=== PATIENT | male | born 1955 | race Caucasian/White ===

== ENCOUNTER 2020-10-25 05:39 | Observation (INO) | payer MEDICARE ==
[2020-10-25] VITALS (10 sets, daily range): BP systolic 105–159; BP diastolic 46–86; PULSE 49–66; TEMP 97.1–97.9
[~2020-10-25] VITALS: Ht 188 cm; Wt 135.7 kg
[2020-10-25] MEDS ORDERED: COZAAR100 MG PO (06:05)
[2020-10-25] MEDS ORDERED: HYGROTON 2525 MG/TAB PO (06:06)
[2020-10-25] MEDS ORDERED: NORVASC 10MG10 MG PO (06:06)
--- NOTE | 2020-10-25 08:17 | NUR ---
0710: PATIENT WENT BACK TO OR WITH THIRD OFFICER, CHART SENT WITH PATIENT, PATIENT BELONGINGS BROUGHT TO PACU. SENT TO WAITING ROOM.
--- NOTE | 2020-10-25 11:00 | NUR ---
PATIENT ADMITTED INTO ROOM 349 POST OP LTK. A&O. VSS. PACU DID REPORT PATIENT GOT ROBINOL IN OR FOR BRADYCARDIA. HR IS CURRENTLY IN THE 50'S. LTK DRESSING IS CD&I WITH ACEWRAP AND ICE PACK INPLACE. TEDS TO RLE. SCD'S TO BLE. POSITIVE PEDAL PULSES TO BLE. NO C/O PAIN IN LLE. PATIENT IS UNABLE TO MOVE BLE POST OP. IV FLUIDS INFUSING INTO RIGHT HAND IV. NO C/O N/V. LIQUIDS AT BEDSIDE. HEAD TO TOE ASSESSMENT COMPLETE. AT BEDSIDE. CALL LIGHT IN REACH.
--- NOTE | 2020-10-25 13:30 | NUR ---
PATIENT REPORTS HIS SPINAL IS STARTING TO WEAR OFF AND REQUESTED PAIN MEDS BEFORE THE PAIN SETS IN. RATES PAIN AT 3/10 IN LLE. GAVE PRN ROXICODONE, ONE TAB PER PAIN PROTOCOL. WILL MONITOR
--- NOTE | 2020-10-25 15:30 | NUR ---
PATIENT REPORTS INCREASING PAIN IN LLE RATED AT 8/10 EVEN AFTER 5MG ROXICODONE & SCHEDULED TYLENOL. GAVE ANOTHER DOSE OF PRN ROXICODONE, 5MG AND 2MG OF IV MORPHINE. NOTIFIED. SEE MEDICATION CHANGES. PATIENT PLACED IN A THE "TIME OUT" POSITIONED AND ICE TO LEFT KNEE. WILL MONITOR.
--- NOTE | 2020-10-25 16:30 | NUR ---
PATIENT IS NOW RESTING COMFORTABLY IN BED WITH LLE ELEVATED. LIGHTS TURNED DOWN. CALL LIGHT IN REACH.
--- NOTE | 2020-10-25 17:33 | NUR ---
PATIENT HAS NOT VOIDED POST OP YET. PATIENT DENIES URGE TO VOID. URINE AT BEDSIDE. PATIENT UNABLE TO URINATE WHEN ASKED TO TRY. BLADDER SCAN ONLY SHOWED 322CC. WILL GIVE PATIENT MORE TIME.
--- NOTE | 2020-10-25 19:30 | NUR ---
PATIENT IS ALERT AND ORIENTED X4. PATIENT HAS DRESSING AND JESSIE WRAP TO LEFT KNEE THAT IS CLEAN DRY AND INTACT. PATIENT HAS SCDS AND RONALDO HOSE ON BILATERAL LOWER EXTREMITIES. PATIENT HAS YET TO VOID AND WAS BLADDER SCANNED CLOSE TO SHIFT CHANGE WITH 300ML. PATIENT HAS IV INT TO RIGHT HAND. PATIENT IS SET TO WALK THIS PM. PATIENT DENIES FURTHER NEEDS AT THIS TIME. CALL LIGHT WITHIN REACH. HEAD TO TOE ASSESSMENT COMPLETE.
[2020-10-26 03:48] VITALS: BP 163/70; PULSE 64; TEMP 98
[2020-10-26 06:52] LABS: HEMATOCRIT 41.3 % (42.0-52.0); HEMOGLOBIN 14.4 g/dl (13.5-18.0)
[2020-10-26 07:45] VITALS: BP 144/64; PULSE 61; TEMP 97.6
--- NOTE | 2020-10-26 08:15 | NUR ---
Patient in bed resting. Alert and oriented x 3. Assessment complete. Patient states pain 5/10 to left knee, medications given per orders. Left knee with acewrap is CDI. Pedal pulses intact. Tedhose and SCDs to RLE. Patient additional needs at this time.
--- NOTE | 2020-10-26 09:00 | NUR ---
Contacted Quinton Rascon, patient states that he has been unable to void since last night, bladder scanned for 867 ml of urine. Straight cathed per TORB. Removed 1200 ml of urine. No further needs at this time.
--- NOTE | 2020-10-26 10:10 | NUR ---
Patient states increased pain to knee, medications given per orders.
[2020-10-26 12:00] VITALS: BP 154/62; PULSE 64; TEMP 98.7
--- NOTE | 2020-10-26 12:29 | NUR ---
First visit from the mail technician. No needs right now.
[2020-10-26 15:31] VITALS: BP 151/53; PULSE 62; TEMP 98.3
--- NOTE | 2020-10-26 15:34 | NUR ---
political worker met with patient to discuss discharge plan. Patient lives at home with Nica ([phone]) in [place]. Patient reports he is independent on all activities of daily living and uses no medical equipment to assist with mobility. Patient's PCP is at [facility] and states he doesn't see a particular doctor. Patient uses [facility] in [place] and has no trouble affording his medications. Patient reports he has a trust established and thinks the DP- is included in that. Worker educated patient that since he is legally his agent would be his . Patient plans on returning home with . *Discharge plan: Home with spouse*
--- NOTE | 2020-10-26 18:27 | NUR ---
Patient has done well throughout the day, main medications given throughout the day for knee pain. Dressing changed to aquacell this AM, leah hose to BLE. Educated patient on increasing activity. Has been up to recliner throughout the day and for meals then back to bed. Ice maintained to knee. Denies needs at this time. Will report off to metal door assembler.
--- NOTE | 2020-10-26 19:24 | NUR ---
Bladder scanned patient at this time, is still unable to void. Scanned for 675 ml of urine. Straight cathed per orders, removed 750 ml of urine.
[2020-10-26 19:30] VITALS: BP 153/51; PULSE 67; TEMP 97.8
--- NOTE | 2020-10-26 20:00 | NUR ---
PATIENT ALERT AND ORIENTED X4. PATIENT UP SITTING IN BED. STRAIGHT CATH DONE BEFORE SHIFT CHANGE WITH OUTPUT OF 750ML. PATIENT DENIES FEELING LIKE HE NEEDS TO URINATE NOW. PATIENT HAS AQUACELL TO LEFT KNEE. CLEAN DRY AND INTACT. PATIENT HAS SCD'S ON BILATERAL LOWER EXTREMITIES. PATIENT DENIES PAIN OR OTHER NEEDS AT THIS TIME. HEAD TO TOE ASSESSMENT COMPLETE. CALL LIGHT WITHIN REACH.
[2020-10-26 23:36] VITALS: BP 149/58; PULSE 71; TEMP 98.1
[2020-10-27 03:27] VITALS: BP 135/60; PULSE 62; TEMP 98.5
--- NOTE | 2020-10-27 06:34 | NUR ---
PATIENT DID WELL THROUGHOUT NIGHT. PATIENT WAS ABLE TO URINATE TWICE IN URINAL THROUGHOUT NIGHT. RECIEVED PAIN MEDS PER ORDERS REQUESTED. TO REPORT TO DAY SHIFT.
[2020-10-27 07:27] VITALS: BP 156/55; PULSE 67; TEMP 98
--- NOTE | 2020-10-27 08:30 | NUR ---
PATIENT IS A&O AND SITTING UP IN BEDSIDE CHAIR WITH BREAKFAST TRAY. VSS. C/O PAIN IN LLE RATED AT 4-5 ON PAIN SCALE AND IS REQUESTING PAIN MEDS BEFORE AM THERAPY. GAVE PRN ROXICODONE, TWO TABS BEFORE AM THERAPY. LTK DRESSING IS CD&I WITH AQUACEL. TEDS TO BLE. SCD'S CURRENTLY OFF. POSITIVE PEDAL PULSES TO BLE. PATIENT EAT/DRINK AND NOW VOIDING SUFFIENT AMOUNTS. PATIENT WAS ABLE TO VOID X3 SINCE BEING STRAIGHT CATHED LAST NIGHT. URINAL AT BEDSIDE. RIGHT HAND IV TO INT. NO C/O N/V. AM MEDS GIVEN. HEAD TO TOE ASSESSMENT COMPLETE. NO OTHER NEEDS AT THIS TIME. CALL LIGHT IN REACH.
--- NOTE | 2020-10-27 09:30 | NUR ---
PHYSICAL THERAPY WORKING WITH PATIENT WHO WAS ONLY ABLE TO AMBULATE TO THE ROOM DOOR. PATIENT AND HIS ARE HESITENT TO DISCHAGE HOME TODAY AND HAVE EXPRESSED THE NEED TO STAY ANOTHER NIGHT TO STAFF. WILL MONITOR THERAPY PROGRESSION TODAY
[2020-10-27 12:00] VITALS: BP 134/52; PULSE 72; TEMP 98.3
[2020-10-27 15:23] VITALS: BP 151/52; PULSE 83; TEMP 97.7
[2020-10-27 19:44] VITALS: BP 159/63; PULSE 70; TEMP 98.5
--- NOTE | 2020-10-27 20:00 | NUR ---
PATIENT IS ALERT AND ORIENTED X4. PATIENT WENT ON WALK AROUND FLOOR. ORDER FOR TYLENOL CALLED BECAUSE PATIENT COMPLAINS OF FEELING LIGHT HEADED EARLIER TODAY WHICH HE THINKS COULD BE FROM THE NARCOTICS. PATIENT HAS INT IV TO RIGHT HAND. PATIENT TO BE DISCHARGED TOMORROW. PATIENT DENIES FURTHER NEEDS AT THIS TIME. CALL LIGHT WITHIN REACH. HEAD TO TOE ASSESSMENT COMPLETE.
[2020-10-27 23:45] VITALS: BP 145/60; PULSE 77; TEMP 98.4
[2020-10-28 03:33] VITALS: BP 135/60; PULSE 64; TEMP 98.4
--- NOTE | 2020-10-28 05:59 | NUR ---
PATIENT DID WELL THROUGHOUT NIGHT. TYLENOL FOR PAIN PER ORDERS. PATIENT TO DISCHARGE TODAY. PATIENT DENIES PAIN OR FURTHER NEEDS AT THIS TIME. WILL REPORT TO DAYSHIFT.
[2020-10-28 08:00] VITALS: BP 152/51; PULSE 74; TEMP 97.9
[2020-10-28] MEDS ORDERED: FLOMAX 0.40.4 MG/CAP PO (09:20)
[2020-10-28] MEDS ORDERED: ASPI325T6 PO (09:20)
[2020-10-28] MEDS ORDERED: NORCO 325 MG-7.1 TAB PO (09:21)
[2020-10-28] MEDS ORDERED: ROXICODONE 55 MG/TAB PO (09:23)
[2020-10-28] MEDS ORDERED: SENOKOT S 50 MG1 TAB PO (09:24)
[2020-10-28 12:00] VITALS: BP 129/52; PULSE 72; TEMP 98.6
--- NOTE | 2020-10-28 15:00 | NUR ---
PATIENT DISCHARGING HOME VIA WC TO PERSONAL VEHICLE WITH . GAVE DISCHARGE INSTRUCTIONS, E-SCRIPTS SENT & DISCUSSED F/U APT. ANSWERED QUESTIONS/CONCERNS. RN DC'D RIGHT HAND IV, COVERED SITE WITH GAUZE & COBAN. PATIENT IS DRESSED, PACKED & ESCORTED OUT.
== END 2020-10-28 15:00 | disposition home or self-care (01) ==
LOC: INPTSU 05:39 → SDCO 05:39 → SURG 05:39 → EDSTATUS 07:30 → SURG 07:30 → INPTSU 11:00 → SDCO 13:06 → SURG 10-26 15:46
PROVIDERS: ADMIT Orthopaedic Surgery
DX: M17.0 Bilateral primary osteoarthritis of knee (principal); I10 Essential (primary) hypertension; G47.33 Obstructive sleep apnea (adult) (pediatric); Z79.1 Long term (current) use of non-steroidal anti-inflammatories (NSAID); Z79.899 Other long term (current) drug therapy
CPT/HCPCS: OP; A9284; C1713; C1776; G0378; J0690; J2250; J2270; J2704; J3010; J7030; J7120

== ENCOUNTER 2021-10-24 05:38 | Inpatient (IN) | payer MEDICARE ==
[~2021-10-24] VITALS: Ht 188 cm; Wt 131.0 kg
[2021-10-24] VITALS (11 sets, daily range): BP systolic 97–168; BP diastolic 40–76; PULSE 44–63; TEMP 94–98.3
[~2021-10-24 05:38] MED LIST: ASPI325T6 PO; COZAAR100 MG PO; FLOMAX 0.40.4 MG/CAP PO; HYGROTON 2525 MG/TAB PO; NORCO 325 MG-7.1 TAB PO; NORVASC 10MG10 MG PO; ROXICODONE 55 MG/TAB PO; SENOKOT S 50 MG1 TAB PO
[2021-10-24] MEDS ORDERED: FOLIC ACID 40400 MCG PO (06:22)
[2021-10-24] MEDS ORDERED: NATURAL IRON65 MG (06:22)
[2021-10-24] MEDS ORDERED: VITAMIN C500 MG PO (06:23)
[2021-10-24] MEDS ORDERED: MULTI VITAMINS1 TAB PO (06:26)
[2021-10-24] MEDS ORDERED: VIT D3 (06:29)
--- NOTE | 2021-10-24 07:13 | NUR ---
5453 CHLORHEXADINE SCRUB DONE RIGHT KNEE
--- NOTE | 2021-10-24 10:15 | NUR ---
Pt. arrived to the floor via bed. Pt. is a&OX3, assessment complete. IV to lt. hand patent. Dressing to rt. knee CDI with salty wrap. Pt. denies pain at this time. Vitals stable.
--- NOTE | 2021-10-24 15:00 | NUR ---
Pt. reports pain continues after receiving an oxycodone. Gave Morphine.
--- NOTE | 2021-10-24 20:23 | NUR ---
PT REPORTS PAIN TO RT KNEE 10/18. MEDICATED WITH OXYCODONE 10MG PO AT THIS TIME. HS MEDS GIVEN WELL. PT HAS BEEN UNABLE TO VOID ON HIS OWN. HAS INT TO LEFT HAND, FLUSHES EASILY. IS ALERT AND ORIENTED X4.
--- NOTE | 2021-10-24 21:27 | NUR ---
PT WAS ABLE TO STAND AT BEDSIDE, POOR WALKING ATTEMPT. MEDICATED WITH NORCO 7.5MG 1 PO AT THIS TIME FOR RT KNEE PAIN. BULKY DRSG INTACT TO RT KNEE. ICE PACK IN PLACE.
--- NOTE | 2021-10-25 00:58 | NUR ---
PT AWAKE, MEDICATED WITH OXYCODONE 10MG PO WITH SCHEDULED TYLENOL. PT ATTEMPTING TO USE URINAL, NO SUCCESS.
--- NOTE | 2021-10-25 01:22 | NUR ---
PT BLADDER SCANNED FOR 405 AT 2300, PT STILL UNABLE TO VOID. STRAIGHT CATHED FOR 550CC YELLOW URINE RETURN. PT TOLERATED PROCEDURE WELL.
[2021-10-25 03:28] VITALS: BP 160/58; PULSE 53; TEMP 97.9
[2021-10-25 06:06] LABS: HEMATOCRIT 40.5 % (42.0-52.0); HEMOGLOBIN 14.7 g/dl (13.5-18.0)
[2021-10-25 07:48] VITALS: BP 143/55; PULSE 51; TEMP 97.9
--- NOTE | 2021-10-25 09:12 | NUR ---
Pt. sitting up in the chair at this time. Pt. is a&OX3, assessment complete. INT to lt. hand patent. Pt. reports that he hasn't urinated yet. Will bladder scan after PT works with the pt. Pt. reports pain to rt. knee at a 6 on pain scale, gave pain meds per orders. Pt. denies further needs, call light within reach.
--- NOTE | 2021-10-25 09:18 | NUR ---
Trust And Estates Attorney met with patient to discuss discharge planning. Patient advised he is in pain right now but is agreeable to answer intake questions. Patient lives in [place] with his , Nica (ph#[phone]) and sees Dr. Lopez in [facility] for primary care. Patient uses [facility] in [place] for medications and does not normally use DME, however has a front wheeled walker that he has borrowed for recovery. Patient is normally independent with ADLS and plans to return home at time of discharge. Patient believes he has Advance Directives as a part of his trust, but patient is not entirely sure. Discharge Plan: Home
--- NOTE | 2021-10-25 10:11 | NUR ---
Initial visit; Patient drowsy and in pain but kindly thanked Principal Cyber Engineer for looking in on him, offering encouragement and keeping him in her prayers.
[2021-10-25 12:25] VITALS: BP 158/49; PULSE 52; TEMP 97.8
--- NOTE | 2021-10-25 15:34 | NUR ---
Notified KAILEY Alcantara about pt.'s urine retention. New order received for rincon catheter. Placed 16 fr. coude. Pt. tolerated well.
[2021-10-25 16:32] VITALS: BP 180/48; PULSE 60; TEMP 98
[2021-10-25 19:12] VITALS: BP 156/47; PULSE 58; TEMP 97.4
[2021-10-25 23:42] VITALS: BP 132/43; PULSE 61; TEMP 97.7
[2021-10-26 03:28] VITALS: BP 140/52; PULSE 55; TEMP 97.8
--- NOTE | 2021-10-26 06:04 | NUR ---
END OF SHIFT NOTE: PATIENT RESTED QUIETLY THIS SHIFT. PATIENT AMBULATED SHORT DISTANCE IN HALLWAYS WITH WALKER. PATIENT GIVEN PRN OXYCODONE AT HS AND SCHEDULED TYLENOL THE REST OF SHIFT. PATIENT PAYAN CATHETER DRAINING AND PATIENT VOICES CURIOSITY WHEN CATHETER IS GOING TO COME OUT IN THE AM.
[2021-10-26 07:13] VITALS: BP 139/72; PULSE 56; TEMP 98.6
--- NOTE | 2021-10-26 09:04 | NUR ---
PT ALERT AND ORIENTED, WITH DRESSING CDI, PAYAN REMOVED AT 0750, ABLE TO VOID AT 0900, DENIES SOA, LUNGS CTA, WALKED WITH PT THIS MORNING.
--- NOTE | 2021-10-26 09:04 | NUR ---
PT UP TO BR VOIDED AND RETURNED TO RECLINER WITH SBA X1.
[2021-10-26] MEDS ORDERED: ASPI325T6 PO (13:17)
[2021-10-26] MEDS ORDERED: ROXICODONE 55 MG/TAB PO (13:19)
[2021-10-26] MEDS ORDERED: NORCO 325 MG-7.1 TAB PO (13:20)
[2021-10-26] MEDS ORDERED: SENOKOT S 50 MG1 TAB PO (13:21)
== END 2021-10-26 13:52 | disposition home or self-care (01) | DRG 470 ==
LOC: SDCO 05:38 → SURG 09:15 → SDCO 10:15 → SURG 16:39 → SDCO 16:40 → SURG 10-25 13:55
PROVIDERS: ADMIT Orthopaedic Surgery
PROC: 0SRC0J9 Replacement of Right Knee Joint with Synthetic Substitute, Cemented, Open Approach (ICD-10-PCS; principal; 2021-10-24 07:30)
DX: M17.11 Unilateral primary osteoarthritis, right knee (principal); G47.33 Obstructive sleep apnea (adult) (pediatric); I10 Essential (primary) hypertension; Z86.73 Personal history of transient ischemic attack (TIA), and cerebral infarction without residual deficits
CPT/HCPCS: OP; A9284; C1713; C1776; J0690; J2250; J2270; J2405; J2704; J3010; J7120